=== PATIENT | male | born 2000 | race Two or more races ===

== ENCOUNTER 2022-03-22 11:55 | Emergency (ER) | payer SELFPAY ==
[2022-03-22 12:27] VITALS: BP 150/67; PULSE 84; RESP 16; TEMP 37; O2SAT 100
--- NOTE | 2022-03-22 13:50 | ED.BACK ---
HPI - Back Pain/Injury General Chief Complaint: Back Pain/Injury Stated Complaint: Back Pain Time Seen by Provider: 03/22/22 13:37 History of Present Illness HPI Narrative: 21 y/o male presents to ER today for complaints of right thoracic back pain. He says it started this morning when he woke up and got out of bed. Feels like muscle spasm. He has never had back problems in the past. He has not taken anything at home for the pain. Denies any injury to his back. No numbness or tingling or extremity weakness. Related Data Allergies Allergy/AdvReac Type Severity Reaction Status Date / Time No Known Allergies Allergy Verified 03/22/22 12:56 Review of Systems Constitutional: Constitutional: Denies chills, Denies fever(s) and Denies weakness Eyes: Eyes: Reports no additional eye complaints ENT: Denies dizziness and Denies nasal congestion Cardiovascular: Cardiovascular: Denies chest pain Respiratory: Respiratory: Denies cough, Denies dyspnea and Denies wheezing Gastrointestinal: Gastrointestinal: Denies constipation, Denies diarrhea, Denies nausea and Denies vomiting Genitourinary: Genitourinary: Reports no additional male genitourinary complaints Musculoskeletal: Musculoskeletal: Reports back pain and Denies arthralgias Integumentary/Breasts: Skin/Breast: Denies rash Neurologic: Denies numbness and Denies weakness Psychiatric: Psychiatric: Reports no additional psychiatric complaints, Denies anxiety and Denies depression Endocrine: Endocrine: Reports no additional endocrine complaints and Denies fatigue Hematologic/Lymphatic: Hematologic/Lymphatic: Reports no additional hematologic/lymphatic complaints Allergic/Immunologic: Allergic/Immunologic: Reports no additional allergic/immunologic complaints Exam Const: General: healthy appearing and no acute distress Orientation/consciousness: patient oriented x3 HENMT: Head: normal to inspection Eyes: Conjunctivae: conjunctivae normal Neck: Neck: normal visual inspection Chest: Chest palpation & inspection: normal inspection of the chest Resp: Effort & Inspection: normal respiratory effort Auscultation: clear to auscultation bilaterally Cardio: Rate: regular rate Rhythm: regular rhythm GI: GI Palp: Yes Soft to palpation, No Tenderness to palpation present (GI) and No Guarding due to palpation present (GI) Auscultation: normal bowel sounds Skin: General skin exam: normal color Rashes: rash noted Neuro: General: patient oriented x3 and moves all extremities Extrem: General: normal to inspection Psych: Mental Status: mental status grossly normal Course Vital Signs Vital signs: Vital Signs Temperature 37.0 C 03/22/22 12:27 Pulse Rate 84 03/22/22 12:27 Respiratory Rate 16 03/22/22 12:27 Blood Pressure 150/67 H 03/22/22 12:27 Pulse Oximetry 100 03/22/22 12:27 Temperature 37.0 C 03/22/22 12:27 Pulse Rate 84 03/22/22 12:27 Respiratory Rate 16 03/22/22 12:27 Blood Pressure 150/67 H 03/22/22 12:27 Pulse Oximetry 100 03/22/22 12:27 MDM - Back Pain/Injury Differential Diagnosis Differential diagnosis: Likely strain of lumbar region and thoracic back pain Discharge Plan Discharge Clinical Impression: Acute right-sided thoracic back pain Patient Disposition: Home, Self-Care Condition: Stable Instructions: Antibiotic Form, Back Pain (ED) Prescriptions: New naproxen [Naprosyn] 500 mg tablet 500 mg PO BID PRN (Reason: pain) Qty: 30 RF: 0 cyclobenzaprine 10 mg tablet 10 mg PO TID PRN (Reason: muscle spasm) Qty: 30 RF: 0 Follow-up/Referrals: PHYSICIAN,PUBLIC POLICY ASSOCIATE [Primary Care Provider] - Ronald Gonzáles MD [Physician] - 3 Days Stand Alone Forms: Work/School Release IP Time of Disposition: 14:03
== END 2022-03-22 14:16 | disposition home or self-care (01) ==
PROVIDERS: Emergency Provider Nurse Practitioner Family
DX: M54.6 Pain in thoracic spine (principal)
CPT/HCPCS: 99283

== ENCOUNTER 2024-07-02 20:12 | Emergency (ER) | payer BC, SELFPAY ==
[2024-07-02 20:36] VITALS: BP 143/92; PULSE 80; RESP 18; TEMP 36.6; O2SAT 100
--- NOTE | 2024-07-02 20:59 | ED.DENTAL ---
HPI - Dental/Oral General Chief complaint: Dental/Oral Stated complaint: right side of face and jaw pain- unsure if dental Time Seen by Provider: 07/02/24 20:58 History of Present Illness HPI Narrative: 23-year-old male with no past medical history presents to emergency department for right dental pain and facial swelling for 2 days. Patient states he has a chipped right upper molar and states this is where the pain is coming from. He denies fever, dysphagia, difficulty breathing or talking, nausea or vomiting. He does not have a dentist. Related Data Allergies Allergy/AdvReac Type Severity Reaction Status Date / Time No Known Allergies Allergy Verified 07/02/24 20:41 Review of Systems Review of Systems: All systems reviewed & are unremarkable except as noted in HPI and below Exam Narrative: GENERAL: Well-appearing, well-nourished, and in no acute distress. HEAD: Normocephalic, atraumatic. EYES: PERRLA and EOMI. ENT: Nares clear, no rhinorrhea or epistaxis. Mucous membranes moist. Caries throughout, right maxillary 1st molar chipped and carried with tenderness to the tooth and gum line. No evidence of periapical abscess. No spontaneous drainage, induration or fluctuation. Floor mouth is soft without crepitus. No trismus. No airway compromise. mild facial edema over the right maxillary sinus with tenderness to palpation. No erythema, induration or fluctuation. No extension superiorly near the orbit. Patient is tolerating secretions. NECK: Supple. CHEST: Clear to auscultation. No respiratory distress. HEART: Regular rate and rhythm. No murmur heard. Normal peripheral pulses. EXTREMITIES: Normal range of motion. No edema. SKIN: Warm, dry, no rash. NEURO: No focal deficits. Alert and oriented x3 Course Vital Signs Vital signs: Vital Signs Temperature 97.8 F 07/02/24 20:36 Pulse Rate 80 07/02/24 20:36 Respiratory Rate 18 07/02/24 20:36 Blood Pressure 143/92 H 07/02/24 20:36 Pulse Oximetry 100 07/02/24 20:36 Oxygen Delivery Room Air 07/02/24 20:36 Temperature 97.8 F 07/02/24 20:36 Pulse Rate 80 07/02/24 20:36 Respiratory Rate 18 07/02/24 20:36 Blood Pressure 143/92 H 07/02/24 20:36 Pulse Oximetry 100 07/02/24 20:36 Oxygen Delivery Room Air 07/02/24 20:36 MDM - Dental/Oral MDM Narrative Medical decision making narrative: 23-year-old male presents to the emergency department for right upper dental pain and facial swelling for 2 days. Triage vital significant for hypertension of 143/92, otherwise unremarkable. Exam is significant for dental caries throughout, tenderness to the right maxillary 1st molar with associated caries and chipped tooth. No evidence of periapical abscess. No airway compromise. No submandibular swelling. Floor mouth is soft crepitus. No trismus. Patient is tolerating secretions. There is mild edema and tenderness to the right face overlying the right maxillary sinus without erythema, induration or fluctuation. Suspect the source is due to the right maxillary 1st molar. Will start the patient on Augmentin, 1st dose provided here. Tylenol, ibuprofen and Augmentin sent to pharmacy. Patient was advised follow-up closely with a dentist, referrals were provided. Strict ED return precautions discussed. He is agreeable with the plan and verbalized understanding. Discharged in stable condition. Discharge Plan Discharge Clinical Impression: Toothache, Dental caries Patient Disposition: Home, Self-Care Condition: Stable Instructions: Antibiotic Form, Toothache (ED) Additional Instructions: You were evaluated in the emergency department for dental pain and right facial swelling. Your found to have a cavity tear tooth that is causing the pain. I sent an antibiotic to the pharmacy, please take this as directed as well as Tylenol ibuprofen as needed for pain. Please follow-up closely with a dentist for further evaluation and
[2024-07-02] MEDS: AMOXICILLIN/CLAVULANATE K 875-125 MG TAB 1 TABLET PO (21:12)
== END 2024-07-02 21:10 | disposition home or self-care (01) ==
LOC: ANHED 21:08
PROVIDERS: Emergency Provider Physician Assistant
DX: K02.9 Dental caries, unspecified (principal); K08.89 Other specified disorders of teeth and supporting structures
CPT/HCPCS: 99283; A9270

== ENCOUNTER 2025-09-24 08:42 | Emergency (ER) | payer SELFPAY ==
--- NOTE | ~2025-09-24 | CT_ITS ---
CT abdomen pelvis w con Clinical History: abd pain, N/V, dehydration . Comparison: None Technique: Axial images lung bases to symphysis pubis IV contrast information not listed in PACS Coronal, sagittal reformats CT images acquired with automatic exposure control for dose reduction DLP: 247 mGy-cm Findings: Lung bases: Clear. Visualized heart and pericardium: Unremarkable. Liver: Unremarkable. Gallbladder: Unremarkable. Spleen: Unremarkable. Pancreas: Unremarkable. Adrenal glands: Unremarkable. Kidneys: Right kidney- No hydronephrosis. No renal stones. Left kidney- No hydronephrosis. No renal stones. Distal esophagus/stomach: Minimal distal esophageal wall thickening/esophagitis. Small bowel loops: Normal caliber and wall thickness. Colon: Normal caliber and wall thickness. Appendix not seen. Nodes: No enlarged nodes. Peritoneum: No ascites. No free air. Urinary bladder: Unremarkable. Prostate: Unremarkable. Bones: No acute bony abnormality. Soft tissues: Unremarkable. Aorta: No aneurysm or dissection. IVC: Unremarkable. Main portal vein/SMV/splenic vein: Patent. IMPRESSION: 1. No acute findings. Reviewed, dictated and finalized at location [facility] IMPRESSION: 1. No acute findings.
[2025-09-24 08:54] VITALS: BP 136/92; PULSE 86; RESP 16; TEMP 36.6; O2SAT 98
[2025-09-24 09:01] VITALS: BP 122/86; PULSE 74; RESP 14; O2SAT 97
[2025-09-24 10:01] VITALS: BP 124/83; PULSE 68; RESP 15; O2SAT 97
[2025-09-24 10:23] LABS: Hematocrit 48.2 % (42.0-52.0); Hemoglobin 17.6 g/dL (14.0-18.0); Immature Granulocyte Percent A 0.5 % (0-0.5); Lymphocytes Absolute Auto 2.05 K/mm3 (0.9-3.2); Mean Corpuscular HGB Conc 36.5 g/dl (32-36); Mean Corpuscular Hemoglobin 31.8 pg (26-34); Mean Corpuscular Volume 87.0 fl (80-100); Nucleated Red Blood Cells Absolute Auto 0.000 K/mm3 (0.0-0.012); Nucleated Red Blood Cells Perc 0.0 % (0.0-0.2); Platelet Count Result 241 k/mm3 (150-375); Red Blood Count 5.54 M/mm3 (4.6-6.20); White Blood Count 17.6 K/mm3 (4.5-10.0)
[2025-09-24] MEDS: ONDANSETRON INJ 4 MG/2 ML VIAL IV PUSH (10:25)
[2025-09-24] MEDS: SODIUM CHLORIDE 0.9% IV 1,000 ML 999 ML IV CONT (10:25)
[2025-09-24] MEDS: HYDROGEN PEROXIDE 3% SOLN(*SP) 473 ML BOTTLE (10:25)
[2025-09-24 10:30] LABS: Alanine Aminotransferase 16 U/L (6-50); Albumin Level 5.2 g/dL (3.5-5.1); Alkaline Phosphatase 82 U/L (38-126); Anion Gap 15 mmol/L (4-12); Aspartate Amino Transferase 22 U/L (17-59); Bilirubin,Total 0.8 mg/dL (0.2-1.3); Blood Urea Nitrogen 18 mg/dL (9-20); Calcium 9.7 mg/dL (8.4-10.2); Carbon Dioxide 23 mmol/L (22-30); Chloride 97 mmol/L (98-107); Estimated CRCL calculation 72 ml/min; Estimated Glomerular Filt Rate > 60; Glucose 104 mg/dL (65-110); Lipase 46 U/L (23-300); Magnesium 2.5 mg/dL (1.6-2.3); Potassium 4.1 mmol/L (3.4-5.0); Sodium 135 mmol/L (137-145); Total Protein 9.7 g/dL (6.3-8.2)
--- NOTE | 2025-09-24 10:33 | ED_ITS ---
HPI - Ear Problem General Chief complaint: Ear Stated complaint: bilateral ear pain Time Seen by Provider: 09/24/25 09:02 Source: patient Mode of arrival: ambulatory Limitations: no limitations History of Present Illness HPI Narrative: Patient is a 25-year-old male who presents to the ED with multiple complaints. Patient report throughout bilateral ears, worse on the right ear for the past 4 days. Reports decreased hearing, some intermittent drainage from the right ear. Also reports having nausea and vomiting over the past 2 days. States he has been unable to keep down any food or drink. Is feeling somewhat dizzy and weak. Reports intermittent abdominal discomfort. Denies diarrhea, constipation, fevers, sick contacts. Denies cough or cold symptoms. Related Data Allergies Allergy/AdvReac Type Severity Reaction Status Date / Time No Known Allergies Allergy Verified 09/24/25 08:57 Review of Systems 2 Review of Systems: All systems reviewed & are unremarkable except as noted in HPI. All systems reviewed & are unremarkable except as noted in HPI and below Exam 2 Narrative: GENERAL: Mildly uncomfortable appearing, well-nourished, non-toxic, in no acute distress. HEAD: Normocephalic, atraumatic. ENT: L EAC erythematous and swollen. Mild erythema to L TM but no evidence of bulging. R cerumen impaction RESPIRATORY: Airway patent, respirations nonlabored. Clear to auscultation bilaterally, no rales, rhonchi, wheezing. CARDIOVASCULAR: Regular rate and rhythm without murmurs, rubs, or gallops. ABDOMINAL: Soft, minimal diffuse tenderness, nondistended. Normoactive BS. MUSCULOSKELETAL: Moves all extremities. No gross deformities. SKIN: Warm, dry, normal color. NEURO: A&O X3. Speech clear. Cranial nerves II-XII grossly intact. Steady gait. No ataxic movements. PSYCHIATRIC: Appropriate mood and affect. Normal interaction. Course Vital Signs Vital signs: Vital Signs Temperature 97.8 F 09/24/25 08:54 Pulse Rate 86 09/24/25 08:54 Respiratory Rate 16 09/24/25 08:54 Blood Pressure 136/92 H 09/24/25 08:54 Pulse Oximetry 98 09/24/25 08:54 Oxygen Delivery Room Air 09/24/25 08:54 Temperature 97.8 F 09/24/25 08:54 Pulse Rate 69 09/24/25 12:04 Respiratory Rate 15 09/24/25 12:04 Blood Pressure 125/83 09/24/25 12:04 Pulse Oximetry 100 09/24/25 12:04 Oxygen Delivery Room Air 09/24/25 08:54 Medical Decision Making MDM Narrative Medical decision making narrative: Patient presented to ED with several day history of bilateral ear pain, worse on right side, nausea /vomiting for the past 2 days. Vital signs stable upon arrival. Patient is afebrile here. Ear exam showing L otitis externa. R cerumen impaction. This was irrigated in the ED. Reeval, does show marked swelling/erythema of R EAC. Unable to fully visualize TM d/t swelling. Will cover for dada otitis externa with possible R otitis media. Started on ofloxacin/augmentin in the ED. Laboratory studies with white blood cell count of 17.6. Neutrophil predominance. No bandemia. CMP with evidence of dehydration. Fluids are ongoing. UA trace ketones, no signs of infection. CT scan of abdomen/pelvis obtained without acute findings. No surgical abnormalities. Discussed lab and imaging findings with patient. Feeling improved with supportive therapy in the ED. Able to tolerate p.o. intake. He feels comfortable going home at this time. Will discharge with course of Zofran for home use. Discussed possibility gastroenteritis picture. Discussed further dietary modifications. Recommended follow-up with primary care doctor for further evaluation. Given return precautions. Patient in agreement with plan. Discharged in stable condition. Medical Records Medical records reviewed: Yes I reviewed the external patient's medical records. Vital Signs Vital Signs: Vital Signs Temperature 97.8 F 09/24/25 08:54 Pulse Rate 86 09/24/25 08:54 Respiratory Rate 16 09/24/25 08:54 Blood Pressure 136/92 H 09/24/25 08:54 Pulse Oximetry 98 09/24/25 08:54 Oxygen Delivery Room Air 09/24/25 08:54 Temperature 97.8 F 09/24/25 08:54 Pulse Rate 69 09/24/25 12:04 Respiratory Rate 15 09/24/25 12:04 Blood Pressure 125/83 09/24/25 12:04 Pulse Oximetry 100 09/24/25 12:04 Oxygen Delivery Room Air 09/24/25 08:54 Lab Data Lab results reviewed: Yes I reviewed the patient's lab results. 09/24/25 10:10 09/24/25 10:10 Labs: Lab Results 09/24/25 Range/Units 10:10 WBC 17.6 H (4.5-10.0) K/mm3 RBC 5.54 (4.6-6.20) M/mm3 Hgb 17.6 (14.0-18.0) g/dL Hct 48.2 (42.0-52.0) % MCV 87.0 (80-100) fl MCH 31.8 (26-34) pg MCHC 36.5 H (32-36) g/dl RDW 12.5 (11.5-14.5) % Plt Count 241 (150-375) k/mm3 MPV 9.1 (7.4-10.4) fl Immature Gran % (Auto) 0.5 (0-0.5) % Neut % (Auto) 80.6 H (45.5-73.1) % Lymph % (Auto) 11.6 L (18.3-44.2) % [place] % (Auto) 7.0 (2.6-8.5) % Eos % (Auto) 0.1 (0-4.4) % Baso % (Auto) 0.2 (0.2-1.2) % Lymph # (Auto) 2.05 (0.9-3.2) K/mm3 [place] # (Auto) 1.2 H (0.1-0.6) K/mm3 Eos # (Auto) 0.0 (0-0.3) K/mm3 Baso # (Auto) 0.0 (0.0-0.1) K/mm3 Abs Immat Gran (auto) 0.08 H (0.00-0.031) K/mm3 Absolute Neuts (auto) 14.2 H (1.3-6.7) K/mm3 Absolute Nucleated RBC 0.000 (0.0-0.012) K/mm3 Nucleated RBC % 0.0 (0.0-0.2) % Sodium 135 L (137-145) mmol/L Potassium 4.1 (3.4-5.0) mmol/L Chloride 97 L (98-107) mmol/L Carbon Dioxide 23 (22-30) mmol/L Anion Gap 15 H (4-12) mmol/L BUN 18 (9-20) mg/dL Creatinine 1.34 H (0.7-1.3) mg/dL Estim Creat Clear Calc 72 ml/min Estimated GFR > 60 (59 - ) Glucose 104 (65-110) mg/dL Calcium 9.7 (8.4-10.2) mg/dL Magnesium 2.5 H (1.6-2.3) mg/dL Total Bilirubin 0.8 (0.2-1.3) mg/dL AST 22 (17-59) U/L ALT 16 (6-50) U/L Alkaline Phosphatase 82 (38-126) U/L Total Protein 9.7 H (6.3-8.2) g/dL Albumin 5.2 H (3.5-5.1) g/dL Lipase 46 (23-300) U/L Urine Color Yellow (Yellow) Urine Appearance Clear (Clear) Urine pH 5.0 (5.0-9.0) Ur Specific [place] 1.024 (1.001-1.035) Urine Protein 1+ H (Negative) mg/dL Urine Glucose (UA) Negative (Negative) mg/dL Urine Ketones Trace H (Negative) mg/dL Ur Blood (Man) Negative (Negative) Urine Nitrate Negative (Negative) Urine Bilirubin Negative (Negative) Urine Urobilinogen 1.0 (<2.0) mg/dL Add Ur Microanalysis Reviewed Leukocyte Esterase Rfl Negative (Negative) ETIENNE/UL Urine RBC 0-2 (0-2) /hpf Urine WBC 0-5 (0-3) /hpf Ur Squamous Epith Cells None seen (Few) /hpf Urine Bacteria None seen /hpf Urine Casts >20 Hyaline Casts Present (None) /lpf Imaging Data Attestation: I personally reviewed and interpreted this imaging study as follows: Radiologist's impression: ITS Impressions Abdomen/Pelvis CT 09/24/25 10:52 IMPRESSION: 1. No acute findings. Discharge Plan Discharge Clinical Impression: Otitis externa Qualifiers: Otitis externa type: unspecified type Chronicity: acute Laterality: bilateral Q ualified Code(s): H60.503 - Unspecified acute noninfective otitis externa, bilateral Nausea and vomiting Qualifiers: Vomiting type: unspecified Qualified Code(s): R11.2 - Nausea with vomiting, unspecified Otitis media Qualifiers: Otitis media type: unspecified Laterality: right Qualified Code(s): H66.91 - Otitis media, unspecified, right ear Patient Disposition: Home Condition: Stable Instructions: Antibiotic Form, Swimmer's Ear (ED), Acute Nausea and Vomiting (ED), Earache (ED) Additional Instructions: Take oral antibiotics as prescribed. Use antibiotic ear drops as prescribed. Avoid putting anything into your ears. Continue Tylenol and Ibuprofen as needed for pain. Utilize zofran as needed for further nausea. Increase fluid intake. Recommend electrolyte rich fluids, gatorade, pedialyte, body armour. Recommend clear liquids or bland diet until symptoms improve, such as bananas, rice, applesauce, toast, or crackers. Follow up with your primary care doctor for further evaluation. Return to the ED if you experience worsening or severe symptoms, unable to keep down food or drink, severe pain, fevers, rectal bleeding, vomiting blood, or any other symptoms of concern. Patient Language: Syriac Prescriptions: New ofloxacin 0.3 % drops 10 drp EACH EAR DAILY 7 Days Qty: 5 0RF ondansetron 4 mg tablet,disintegrating 4 mg PO Q8H PRN (Reason: nausea and vomiting) Qty: 15 0RF amoxicillin-pot clavulanate 875-125 mg tablet 1 tablet PO Q12H 7 Days Qty: 14 0RF No Action naproxen [Naprosyn] 500 mg tablet 500 mg PO BID PRN (Reason: pain) Qty: 30 0RF cyclobenzaprine 10 mg tablet 10 mg PO TID PRN (Reason: muscle spasm) Qty: 30 0RF amoxicillin-pot clavulanate 875-125 mg tablet 1 tablet PO Q12H Qty: 14 0RF ibuprofen 800 mg tablet 800 mg PO TID PRN (Reason: pain) Qty: 20 0RF acetaminophen 500 mg capsule 1,000 mg PO Q6H PRN (Reason: pain) Qty: 30 0RF Follow-up/Referrals: PHYSICIAN,LABORER PRESTRESSED CONCRETE [Primary Care Provider, Internal Medicine] Madhu Rebollar MD [Physician, Family Practice] Referral Note: PRIMARY CARE Time of Disposition: 11:43
[2025-09-24 10:57] LABS: Add Urine Microscopic? YES; Appearance Urine Clear (Clear); Glucose Urine UA Negative (Negative); Leukocyte Esterase Ur Negative LEU/UL (Negative); Need Manual Microscopic Reviewed; Nitrate Urine Negative (Negative); Non Pathogenic Casts >20; Specific Grav Ur 1.024 (1.001-1.035)
[2025-09-24] MEDS: KETOROLAC 30 MG/ML VIAL (*BKC) IV PUSH (11:36)
[2025-09-24] MEDS: OFLOXACIN 0.3% OPHTH SOLN 5 ML BTL 10 DROP EACH EAR (11:56)
[2025-09-24 12:04] VITALS: BP 125/83; PULSE 69; RESP 15; O2SAT 100
== END 2025-09-24 12:05 | disposition home or self-care (01) ==
PROVIDERS: Emergency Provider Physician Assistant
DX: H60.503 Unspecified acute noninfective otitis externa, bilateral (principal); R11.2 Nausea with vomiting, unspecified; H66.91 Otitis media, unspecified, right ear
CPT/HCPCS: 36415; 74177; 80053; 81001; 83690; 83735; 85025; 96374; 96375; 99284; A9270; J1885; J2405; J7030; Q9967